=== PATIENT | male | born 2000 | race African-American/Black ===

== ENCOUNTER 2021-11-09 09:43 | Emergency (ER) | payer OTHER, SELFPAY | END 2021-11-09 10:24 | disposition home or self-care (01) | LOC: ERS 09:43 | DX: U07.1 COVID-19 (principal); J06.9 Acute upper respiratory infection, unspecified | CPT/HCPCS: 99283; U0003; U0005 ==

== ENCOUNTER 2022-04-15 04:05 | Emergency (ER) | payer SELFPAY | END 2022-04-15 05:05 | disposition left against medical advice (07) | LOC: ERS 04:05 | DX: Z53.21 Procedure and treatment not carried out due to patient leaving prior to being seen by health care provider (principal) ==

== ENCOUNTER 2024-10-25 18:41 | Emergency (ER) | payer SELFPAY ==
[2024-10-25] MEDS ORDERED: Acetaminophen 500 MG TAB ONE (20:34)
[2024-10-25] MEDS ORDERED: Metoclopramide HCl 10 MG (2 mL) VIAL ONE (20:35)
[2024-10-25] MEDS ORDERED: diphenhydrAMINE 50 MG/ML VIAL ONE (20:35)
[2024-10-25] MEDS ORDERED: Ketorolac Tromethamine 30 MG (1 mL) VIAL ONE (20:35)
== END 2024-10-25 22:13 | disposition home or self-care (01) ==
LOC: ERS 18:41
DX: G43.909 Migraine, unspecified, not intractable, without status migrainosus (principal)
CPT/HCPCS: 96361; 96374; 96375; J1200; J1885; J2765; J2919